=== PATIENT | female | born 2000 | race Caucasian/White ===

== ENCOUNTER 2021-08-15 11:01 | Emergency (ER) | payer OTHER, SELFPAY ==
[2021-08-15 11:10] VITALS: BP 117/80; PULSE 92; RESP 20; TEMP 36.9; O2SAT 100
--- NOTE | 2021-08-15 11:57 | ED.FEMALEGU ---
HPI - Female Genitourinary General Chief complaint: Urogenital-Female Stated complaint: STD Exposure Time Seen by Provider: 08/15/21 11:50 Source: patient, RN notes reviewed and old records reviewed Mode of arrival: ambulatory Limitations: no limitations History of Present Illness HPI Narrative: 20-year-old female who presents to [facility] with complaints of possible STD exposure. Patient states that she received a call from her boyfriend who is working out of state stating that he had chlamydia and she states that she is freaking out. Patient reports that she has not had sexual relations with him since April, she has no discharge or any urinary symptoms. Patient reports that she has not had any fevers, chills or sweats.Patient states that she only want treatment for Chlamydia if testing shows other concerns will return for other treatment. Related Data Home Medications Medication Instructions Recorded Confirmed buspirone 15 mg PO BID 08/15/21 08/15/21 etonogestrel [Nexplanon] 1 implant SUBDERMAL ONCE 08/15/21 08/15/21 Allergies Allergy/AdvReac Type Severity Reaction Status Date / Time No Known Allergies Allergy Verified 08/15/21 11:25 Review of Systems Review of Systems: CONSTITUTIONAL: Denies fever, chills, or sweats. EYES: Denies visual changes, redness, or discharge. ENT: Denies rhinorrhea, congestion, sore throat, or otalgia. CARDIOVASCULAR: Denies chest pain, palpitations, or edema. RESPIRATORY: Denies cough or dyspnea. GASTROINTESTINAL: Denies abdominal pain, nausea, vomiting, or diarrhea. GENITOURINARY: Denies dysuria or hematuria. SKIN: Denies rash or itching. MUSCULOSKELETAL: Denies back pain, joint pain, or myalgia. NEUROLOGIC: Denies headache, numbness, or weakness. PSYCHIATRIC: Denies anxiety or depression. All systems reviewed & are unremarkable except as noted in HPI and below PMFSH Past Medical History Medical History (Updated 08/16/21 @ 11:07 by Danii Daily NP) Anxiety Skin lesion of chest wall removed Social History Social History (Updated 08/16/21 @ 11:08 by Danii Daily NP) Smoking status: Current every day smoker Tobacco type: cigarettes and e-cigarettes/vaping Substance use type: marijuana Gender identity (if verbalized by the patient): Female Comments At time of signature, agree with nursing past medical, surgical, social and family history. There is no relevant family history pertinent to the presenting complaint Exam Narrative: GENERAL: Well-appearing, well-nourished, and in no acute distress. HEAD: Normocephalic, atraumatic. EYES: PERRLA and EOMI. ENT: Nares clear, no rhinorrhea or epistaxis. Mucous membranes moist.TM's normal with good light reflex throat pink with no exudates or lesions no tonsil swelling NECK: Supple.no lymphadenopathy CHEST: Clear to auscultation. No respiratory distress.SAO2 100% on room air HEART: Regular rate and rhythm. No murmur heard. Normal peripheral pulses. ABDOMEN: Soft, nontender, nondistended, normal active bowel sounds.No abdominal pain, denies any vaginal discharge or itching EXTREMITIES: Normal range of motion. No edema. SKIN: Warm, dry, no rash. NEURO: No focal deficits. Alert and oriented x3. Course Course Level of Care: Express Care Visit Vital Signs Vital signs: Vital Signs Temperature 36.9 C 08/15/21 11:10 Pulse Rate 92 08/15/21 11:10 Respiratory Rate 20 08/15/21 11:10 Blood Pressure 117/80 08/15/21 11:10 Pulse Oximetry 100 08/15/21 11:10 Temperature 36.9 C 08/15/21 11:10 Pulse Rate 92 08/15/21 11:10 Respiratory Rate 20 08/15/21 11:10 Blood Pressure 117/80 08/15/21 11:10 Pulse Oximetry 100 08/15/21 11:10 MDM - Female Genitourinary Differential Diagnosis Differential diagnosis: Likely bacterial vaginosis, trichomoniasis, vaginitis, cystitis and other (Possible exposure to STD) Medical Records Attestation: I reviewed the patient's medical records. Lab Data Attestati
== END 2021-08-15 12:18 | disposition home or self-care (01) ==
PROVIDERS: Emergency Provider Registered Nurse; PCP Physician Assistant
DX: Z20.2 Contact with and (suspected) exposure to infections with a predominantly sexual mode of transmission (principal); F17.210 Nicotine dependence, cigarettes, uncomplicated
CPT/HCPCS: 81003; 87491; 87591; 87661; 99213; G0463

== ENCOUNTER 2021-10-15 16:11 | Emergency (ER) | payer OTHER, SELFPAY ==
[2021-10-15 16:20] VITALS: BP 113/68; PULSE 112; RESP 16; TEMP 37.2; O2SAT 99
--- NOTE | 2021-10-15 16:24 | ED.URI ---
HPI - URI/Sore Throat General Chief Complaint: Upper Respiratory Infection Stated Complaint: Sore Throat/Fever Time Seen by Provider: 10/15/21 16:16 Source: patient and RN notes reviewed History of Present Illness HPI Narrative: Patient is a 21-year-old female who presents the urgent care with complaints of sore throat and fever since Wednesday. Patient states her fevers got as high as 102 Fahrenheit. Patient states that she took a COVID test last night at home which was negative. Denies of any ill exposures. States that she has been using cough and cold medication. Denies any nausea or vomiting. No other acute complaints. No acute distress noted. Patient aware of the plan of care. Some parts of this dictation were generated by voice recognition software and may contain typographical and/or grammatical inaccuracies. Related Data Home Medications Medication Instructions Recorded Confirmed buspirone 15 mg tablet 15 mg PO BID 08/15/21 08/15/21 etonogestrel 68 mg subdermal 1 implant subdermal ONCE 08/15/21 08/15/21 implant (Nexplanon) Allergies Allergy/AdvReac Type Severity Reaction Status Date / Time No Known Allergies Allergy Verified 10/15/21 16:26 Review of Systems Review of Systems: CONSTITUTIONAL: Reports a fever EYES: Denies visual changes, redness, or discharge. ENT: Reports of sore throat bilateral otalgia CARDIOVASCULAR: Denies chest pain, palpitations, or edema. RESPIRATORY: Denies cough or dyspnea. GASTROINTESTINAL: Denies abdominal pain, nausea, vomiting, or diarrhea. GENITOURINARY: Denies dysuria or hematuria. SKIN: Denies rash or itching. MUSCULOSKELETAL: Denies back pain, joint pain. Reports body aches NEUROLOGIC: Denies headache, numbness, or weakness. All other systems reviewed are negative, except as documented in HPI. [facility] Past Medical History Medical History (Updated 10/15/21 @ 16:36 by WILLIAM Garcia) Anxiety Skin lesion of chest wall removed Social History Social History (Updated 08/16/21 @ 11:08 by Danii Daily NP) Smoking status: Current every day smoker Tobacco type: cigarettes and e-cigarettes/vaping Substance use type: marijuana Gender identity (if verbalized by the patient): Female Comments At the time of my signature, I reviewed and agree with the nursing past medical, surgical, social, and family history. There is no relevant family history pertinent to the patient complaint. Exam Narrative: GENERAL: This is a well-nourished, well-developed patient, in no apparent distress. HEAD: normocephalic, atraumatic. EYES: PERRL. Sclera clear/white. Vision is grossly intact. EARS: External ears normal, auditory canals clear and without drainage, TMs normal without perforation. Hearing grossly intact. NOSE: External nose normal with no obvious nasal discharge, nares without redness, no rhinorrhea. THROAT: Mucous membranes moist. Moderate erythema noted posterior pharynx with mild postnasal drainage NECK: Neck supple CARDIOVASCULAR: Regular rate and rhythm without murmurs, gallops, or rubs. RESPIRATORY: Clear to auscultation. Breath sounds equal bilaterally. No wheezes, rales, or rhonchi. SKIN: warm, intact with no suspicious lesions or rash, good texture and turgor. NEURO: awake, alert, and oriented to person, place and time. There were no obvious focal neurologic abnormalities. EXTREMITIES: No clubbing, cyanosis, or edema. Course Course Level of Care: Express Care Visit Vital Signs Vital signs: Vital Signs Temperature 99.0 F 10/15/21 16:20 Pulse Rate 112 H 10/15/21 16:20 Respiratory Rate 16 10/15/21 16:20 Blood Pressure 113/68 10/15/21 16:20 Pulse Oximetry 99 10/15/21 16:20 Oxygen Delivery Room Air 10/15/21 16:20 Temperature 99.0 F 10/15/21 16:20 Pulse Rate 112 H 10/15/21 16:20 Respiratory Rate 16 10/15/21 16:20 Blood Pressure 113/68 10/15/21 16:20 Pulse Oximetry 99 10/15/21 16:20 Oxygen Delivery Room Air
--- NOTE | 2021-10-15 16:26 | ED_ITS ---
HPI - URI/Sore Throat General Chief Complaint: Upper Respiratory Infection Stated Complaint: Sore Throat/Fever Time Seen by Provider: 10/15/21 16:16 Source: patient and RN notes reviewed Related Data Home Medications Medication Instructions Recorded Confirmed buspirone 15 mg tablet 15 mg PO BID 08/15/21 08/15/21 etonogestrel 68 mg subdermal 1 implant subdermal ONCE 08/15/21 08/15/21 implant (Nexplanon) Allergies Allergy/AdvReac Type Severity Reaction Status Date / Time No Known Allergies Allergy Verified 10/15/21 16:26 [facility] Past Medical History Medical History (Updated 08/16/21 @ 11:07 by Danii Daily NP) Anxiety Skin lesion of chest wall removed Social History Social History (Updated 08/16/21 @ 11:08 by Danii Daily NP) Smoking status: Current every day smoker Tobacco type: cigarettes and e-cigarettes/vaping Substance use type: marijuana Gender identity (if verbalized by the patient): Female Discharge Plan Discharge Prescriptions: No Action buspirone 15 mg tablet 15 mg PO BID Nexplanon 68 mg Implant 1 implant SUBDERMAL ONCE Follow-up/Referrals: Braden,CATRACHITO Velasquez [Primary Care Provider] -
== END 2021-10-15 16:40 | disposition home or self-care (01) ==
PROVIDERS: Emergency Provider Nurse Practitioner Family; PCP Physician Assistant
DX: B34.9 Viral infection, unspecified (principal); F17.210 Nicotine dependence, cigarettes, uncomplicated; F17.290 Nicotine dependence, other tobacco product, uncomplicated; F41.9 Anxiety disorder, unspecified
CPT/HCPCS: 87081; 87804; 87880; 99213; G0463

== ENCOUNTER 2022-10-14 10:10 | Emergency (ER) | payer OTHER, SELFPAY ==
[2022-10-14 10:18] VITALS: BP 120/66; PULSE 93; RESP 16; TEMP 36.6; O2SAT 100
--- NOTE | 2022-10-14 10:27 | ED.GENADULT ---
HPI - General Adult General Stated complaint: nausea / test Time Seen by Provider: 10/14/22 10:27 Source: patient Mode of arrival: ambulatory Limitations: no limitations History of Present Illness HPI narrative: 22-year-old female presents today requesting test for work. States she left work today due to nausea. States that her work needs prove that she is . Has had several positive home test. No other complaints today. Patient has a OBGYN appointment scheduled for November 02. All systems reviewed and negative except as noted above. Related Data Home Medications Medication Instructions Recorded Confirmed No Home Medications 10/14/22 10/14/22 Allergies Allergy/AdvReac Type Severity Reaction Status Date / Time No Known Allergies Allergy Verified 10/14/22 10:21 Review of Systems Review of Systems: CONSTITUTIONAL: Denies fever, chills, or sweats. EYES: Denies visual changes, redness, or discharge. ENT: Denies rhinorrhea, congestion, sore throat, or otalgia. CARDIOVASCULAR: Denies chest pain, palpitations, or edema. RESPIRATORY: Denies cough or dyspnea. GASTROINTESTINAL: Denies abdominal pain, nausea, vomiting, or diarrhea. GENITOURINARY: Denies dysuria or hematuria. SKIN: Denies rash or itching. MUSCULOSKELETAL: Denies back pain, joint pain, or myalgia. NEUROLOGIC: Denies headache, numbness, or weakness. PSYCHIATRIC: Denies anxiety or depression. All other systems reviewed are negative, except as documented in HPI. [facility] Past Medical History Medical History (Updated 10/14/22 @ 10:33 by Jacqueline Hummel NP) Anxiety Skin lesion of chest wall removed Social History Social History (Updated 08/16/21 @ 11:08 by Danii Daily NP) Smoking status: Current every day smoker Tobacco type: cigarettes and e-cigarettes/vaping Substance use type: marijuana Gender identity (if verbalized by the patient): Female Comments At time of signature, agree with nursing past medical, surgical, social and family history. There is no relevant family history pertinent to the presenting complaint. Exam Narrative: GENERAL: This is a well-nourished, well-developed patient, in no apparent distress. HEAD: normocephalic, atraumatic. EYES: PERRL. Sclera clear/white. Vision is grossly intact. EARS: External ears normal NOSE: External nose normal NECK: Neck supple, non-tender without lymphadenopathy, masses or thyromegaly. CARDIOVASCULAR: Regular rate and rhythm without murmurs, gallops, or rubs. RESPIRATORY: Clear to auscultation. Breath sounds equal bilaterally. No wheezes, rales, or rhonchi. SKIN: warm, Dry, intact with no suspicious lesions or rash, good texture and turgor. NEURO: awake, alert, and oriented to person, place and time. There were no obvious focal neurologic abnormalities. EXTREMITIES: No joint tenderness, effusion, or edema noted. Course Course Level of Care: Express Care Visit Vital Signs Vital signs: Vital Signs Temperature 36.6 C 10/14/22 10:18 Pulse Rate 93 10/14/22 10:18 Respiratory Rate 16 10/14/22 10:18 Blood Pressure 120/66 10/14/22 10:18 Pulse Oximetry 100 10/14/22 10:18 Oxygen Delivery Room Air 10/14/22 10:18 Temperature 36.6 C 10/14/22 10:18 Pulse Rate 93 10/14/22 10:18 Respiratory Rate 16 10/14/22 10:18 Blood Pressure 120/66 10/14/22 10:18 Pulse Oximetry 100 10/14/22 10:18 Oxygen Delivery Room Air 10/14/22 10:18 Reviewed Medical Decision Making MDM Narrative Medical decision making narrative: Patient is aware of diagnosis, understands and agrees to treatment plan. Anticipatory guidance given. Patient agrees to follow-up as directed and is aware of reasons to seek care at the emergency department. Portions of this record may have been created with voice recognition software Vital Signs Vital Signs: Vital Signs Temperature 36.6 C 10/14/22 10:18 Pulse Rate 93 0
[2022-10-14 10:28] VITALS: BP 120/66; PULSE 93; RESP 16; TEMP 36.6; O2SAT 100
== END 2022-10-14 10:35 | disposition home or self-care (01) ==
PROVIDERS: Emergency Provider Nurse Practitioner Family; PCP Physician Assistant
DX: Z32.01 Encounter for pregnancy test, result positive (principal); F17.210 Nicotine dependence, cigarettes, uncomplicated; F17.290 Nicotine dependence, other tobacco product, uncomplicated; F12.90 Cannabis use, unspecified, uncomplicated
CPT/HCPCS: 99211; G0463

== ENCOUNTER 2022-10-26 14:03 | Emergency (ER) | payer OTHER, SELFPAY ==
[2022-10-26 14:08] VITALS: BP 114/58; PULSE 72; RESP 20; TEMP 37.3; O2SAT 100
[2022-10-26 14:16] VITALS: BP 114/58; PULSE 72; RESP 20; TEMP 37.3; O2SAT 100
--- NOTE | 2022-10-26 14:18 | ED.NAVMDI ---
HPI - Nausea/Vomiting/Diarrhea General Chief complaint: Nausea/Vomiting/Diarrhea Stated complaint: Vomiting History of Present Illness HPI Narrative: Patient presents with nausea. Patient is 10 weeks and in her 1st trimester and states she has nausea. Patient is able to tolerate saltine crackers and keep liquids down. No abdominal pain, no vaginal discharge, no urinary symptoms, no back pain no related ear problems. Other than the nausea. 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 Related Data Allergies Allergy/AdvReac Type Severity Reaction Status Date / Time No Known Allergies Allergy Verified 10/26/22 14:10 Review of Systems Review of Systems: CONSTITUTIONAL: Denies fever, chills, or sweats. EYES: Denies visual changes, redness, or discharge. ENT: Denies rhinorrhea, congestion, sore throat, or otalgia. CARDIOVASCULAR: Denies chest pain, palpitations, or edema. RESPIRATORY: Denies cough or dyspnea. GASTROINTESTINAL: Denies abdominal pain, nausea, vomiting, or diarrhea. GENITOURINARY: Denies dysuria or hematuria. SKIN: Denies rash or itching. MUSCULOSKELETAL: Denies back pain, joint pain, or myalgia. NEUROLOGIC: Denies headache, numbness, or weakness. PSYCHIATRIC: Denies anxiety or depression. [facility] Past Medical History Medical History (Updated 10/26/22 @ 14:27 by WILLIAM Lamar) Anxiety Skin lesion of chest wall removed Social History Social History (Updated 08/16/21 @ 11:08 by Danii Daily NP) Smoking status: Current every day smoker Tobacco type: cigarettes and e-cigarettes/vaping Substance use type: marijuana Gender identity (if verbalized by the patient): Female Comments At time of signature, agree with nursing past medical, surgical, social and family history. There is no relevant family history pertinent to the presenting complaint Exam Narrative: GENERAL: Well-appearing, well-nourished, and in no acute distress. HEAD: Normocephalic, atraumatic. EYES: PERRLA and EOMI. ENT: Nares clear, no rhinorrhea or epistaxis. Mucous membranes moist. NECK: Supple. CHEST: Clear to auscultation. No respiratory distress. HEART: Regular rate and rhythm. No murmur heard. Normal peripheral pulses. ABDOMEN: Soft, nontender, nondistended, normal active bowel sounds. EXTREMITIES: Normal range of motion. No edema. SKIN: Warm, dry, no rash. NEURO: No focal deficits. Alert and oriented x3. Maryuri Coma Scale Eye Opening: Spontaneous 4 Maryuri Coma Scale Motor: Obeys Commands 6 Maryuri Coma Scale Verbal: Oriented 5 [place] Coma Scale Total 15 Course Course Level of Care: Express Care Visit Vital Signs Vital signs: Vital Signs Temperature 37.3 C 10/26/22 14:08 Pulse Rate 72 10/26/22 14:08 Respiratory Rate 20 10/26/22 14:08 Blood Pressure 114/58 L 10/26/22 14:08 Pulse Oximetry 100 10/26/22 14:08 Oxygen Delivery Room Air 10/26/22 14:08 Temperature 37.3 C 10/26/22 14:16 Pulse Rate 72 10/26/22 14:16 Respiratory Rate 20 10/26/22 14:16 Blood Pressure 114/58 L 10/26/22 14:16 Pulse Oximetry 100 10/26/22 14:16 Oxygen Delivery Room Air 10/26/22 14:16 MDM - Nausea/Vomiting/Diarrhea Differential Diagnosis Differential diagnosis: Likely traveler's diarrhea, food poisoning, gastroenteritis, clostridium difficile infection, drug-induced nausea and vomiting and dehydration Discharge Plan Discharge Clinical Impression: First trimester , Nausea and vomiting during Patient Disposition: Home, Self-Care Condition: Stable Instructions: Nausea and Vomiting in (ED), at 7 to 10 Weeks (ED) Additional Instructions: push fluids, soups, saltine crackers follow up with OB as planned medication as prescribed if any new or worsening of symptoms go to er immediately Prescriptions: New doxylamine-pyridoxine (vit B6) [Diclegi
== END 2022-10-26 14:26 | disposition home or self-care (01) ==
PROVIDERS: Emergency Provider Nurse Practitioner Family; PCP Physician Assistant
DX: O21.9 Vomiting of pregnancy, unspecified (principal); Z3A.10 10 weeks gestation of pregnancy
CPT/HCPCS: 99213; G0463

== ENCOUNTER 2023-08-20 19:30 | Emergency (ER) | payer OTHER, SELFPAY ==
[2023-08-20 19:36] VITALS: BP 122/70; PULSE 64; RESP 16; TEMP 37.7; O2SAT 98
--- NOTE | 2023-08-20 19:56 | ED.DENTAL ---
HPI - Dental/Oral General Chief complaint: Dental/Oral Stated complaint: tooth infection Time Seen by Provider: 08/20/23 19:50 Source: patient Mode of arrival: ambulatory History of Present Illness HPI Narrative: 22-year-old female presenting for complaint of right lower dental pain for about 1 week. Endorses broken wisdom tooth at the site. Scheduled with dentist in 5 days. Patient is currently . MD Complaint: tooth pain Related Data Home Medications Medication Instructions Recorded Confirmed norethindrone (contraceptive) 0.35 mg 08/20/23 mg tablet Allergies Allergy/AdvReac Type Severity Reaction Status Date / Time No Known Allergies Allergy Verified 10/26/22 14:10 Review of Systems Review of Systems: CONSTITUTIONAL: Denies body aches, fever, chills ENT: Denies rhinorrhea, congestion, sore throat, or otalgia. Reports dental pain CARDIOVASCULAR: Denies chest pain, palpitations RESPIRATORY: Denies cough or dyspnea. SKIN: Denies rash, itching, or wounds. MUSCULOSKELETAL: Denies myalgia. NEUROLOGIC: Denies headache, numbness, tingling, or weakness. [facility] Past Medical History Medical History Anxiety Skin lesion of chest wall removed Social History Social History Smoking status: Current every day smoker Tobacco type: cigarettes and e-cigarettes/vaping Substance use type: marijuana Gender identity (if verbalized by the patient): Female Comments At time of signature, I have reviewed and agree with nursing past medical, surgical, social and family history unless otherwise noted. Please see nursing chart for further information. There is no relevant family history pertinent to the presenting complaint Exam Narrative: GENERAL: Appears in pain; no acute distress. HEAD: Normocephalic, atraumatic. EYES: EOMI. No redness or drainage. Conjunctivae normal. ENT: Dental pain location of #32, Tooth is broken, lateral gumline with periapical abscess noted, no active drainage. no dysphagia, odynophagia, dysphonia, or dyspnea. No uvular deviation or soft palate edema. Mucous membranes pink and moist. TMs normal bilaterally. Throat normal. Uvula midline. NECK: Normal AROM. No lymphadenopathy. no induration below mandible, no neck pain. CHEST: No respiratory distress. Clear to auscultation. SKIN: Warm, dry, no rash. Normal skin turgor. NEURO: No focal deficits. Course Course Emergency Course: Patient is aware of diagnosis, understands and agrees to treatment plan. Anticipatory guidance given. Patient agrees to follow-up as directed and is aware of reasons to seek care at the emergency department. Portions of this record may have been created with voice recognition software Level of Care: Express Care Visit Vital Signs Vital signs: Vital Signs Temperature 99.8 F H 08/20/23 19:36 Pulse Rate 64 08/20/23 19:36 Respiratory Rate 16 08/20/23 19:36 Blood Pressure 122/70 08/20/23 19:36 Pulse Oximetry 98 08/20/23 19:36 Oxygen Delivery Room Air 08/20/23 19:36 Temperature 99.8 F H 08/20/23 19:36 Pulse Rate 64 08/20/23 19:36 Respiratory Rate 16 08/20/23 19:36 Blood Pressure 122/70 08/20/23 19:36 Pulse Oximetry 98 08/20/23 19:36 Oxygen Delivery Room Air 08/20/23 19:36 MDM - Dental/Oral MDM Narrative Medical decision making narrative: Patients pain and complaint coupled with physical findings are consistent with dental abscess. There are no focal signs of space occupying lesions that are compromising to the airway; Patient is non-toxic appearing. The floor of the mouth is soft with no signs of Baltazar's Angina; Patient is without trismus or drooling and able to swallow secretions. Patient is felt appropriate for discharge home with dental follow up as scheduled 08/25/23. Differential Diagnosis Differential diagnosis
== END 2023-08-20 20:01 | disposition home or self-care (01) ==
PROVIDERS: Emergency Provider Nurse Practitioner Family; PCP Physician Assistant
DX: K04.7 Periapical abscess without sinus (principal); F17.210 Nicotine dependence, cigarettes, uncomplicated; F17.290 Nicotine dependence, other tobacco product, uncomplicated; F12.90 Cannabis use, unspecified, uncomplicated
CPT/HCPCS: 99213; G0463

== ENCOUNTER 2023-10-08 16:35 | Emergency (ER) | payer OTHER, SELFPAY ==
[2023-10-08 16:41] VITALS: BP 119/71; PULSE 88; RESP 16; TEMP 37.1; O2SAT 100
--- NOTE | 2023-10-08 17:03 | ED.FEMALEGU ---
HPI - Female Genitourinary General Chief complaint: Urogenital-Female Stated complaint: Trichomoniasis Time Seen by Provider: 10/08/23 16:55 Source: patient, RN notes reviewed and old records reviewed Mode of arrival: ambulatory Limitations: no limitations History of Present Illness HPI Narrative: 23 year old [facility] with stated complaint of fiance testing positive for Trichomonas and she is her to be tested. Patient reports that she has no change in vaginal discharge is same as since after bleeding stopped after giving 4 months ago. Patient reports that she has no vaginal itching or any abdominal cramping or pain. Patient did reports that she tested positive for herpes while she was but did not have any outbreak. Patient has 4 month old and is breast feeding. MD elicited complaint: UTI , possible STD and other Pertinent past history: other (UTI while , fiance positive for trichomoniasis) Onset (ago): day(s) (few) Severity: mild Vaginal discharge: other (no change in discharge) Vaginal bleeding: none Sexual activity: Yes Related Data Home Medications Medication Instructions Recorded Confirmed norethindrone (contraceptive) 0.35 mg 08/20/23 mg tablet Allergies Allergy/AdvReac Type Severity Reaction Status Date / Time No Known Allergies Allergy Verified 10/26/22 14:10 Review of Systems Review of Systems: CONSTITUTIONAL: Denies fever, chills, or sweats. CARDIOVASCULAR: Denies chest pain, palpitations, or edema. RESPIRATORY: Denies cough or dyspnea. GASTROINTESTINAL: Denies abdominal pain, nausea, vomiting, or diarrhea. GENITOURINARY: Reports no dysuria,some frequency, urgency. Denies flank pain or hematuria, states did have UTI's during her baby is now 4 months old. SKIN: Denies rash or itching. MUSCULOSKELETAL: Denies back pain or myalgia. Denies CVA tenderness NEUROLOGIC: Denies headache All systems reviewed & are unremarkable except as noted in HPI and below PMFSH Past Medical History Medical History Anxiety Skin lesion of chest wall removed Social History Social History Smoking status: Current every day smoker Tobacco type: cigarettes and e-cigarettes/vaping Substance use type: marijuana Gender identity (if verbalized by the patient): Female Comments At time of signature, agree with nursing past medical, surgical, social and family history. There is no relevant family history pertinent to the presenting complaint Exam Narrative: GENERAL: Well-appearing, well-nourished, and in no acute distress. HEAD: Normocephalic, atraumatic. NECK: Supple.no lymphadenopathy CHEST: Clear to auscultation. No respiratory distress.SAO2 100% on room air HEART: Regular rate and rhythm. No murmur heard. Normal peripheral pulses. ABDOMEN: Soft, nontender, nondistended, normal active bowel sounds. No CVA tenderness, reports urinary frequency and history of UTI's while want urine checked for UTI along with STD's, denies any vaginal lesions or itching EXTREMITIES: Normal range of motion. No edema. SKIN: Warm, dry, no rash. NEURO: No focal deficits. Alert and oriented x3. Course Course Emergency Course: Patient is aware of diagnosis, understands and agrees to treatment plan.? Anticipatory guidance given.? Patient agrees to follow-up as directed and is aware of reasons to seek care at the emergency department. Portions of this record may have been created with voice recognition software Level of Care: Express Care Visit Vital Signs Vital signs: Vital Signs Temperature 37.1 C 10/08/23 16:41 Pulse Rate 88 10/08/23 16:41 Respiratory Rate 16 10/08/23 16:41 Blood Pressure 119/71 10/08/23 16:41 Pulse Oximetry 100 10/08/23 16:41 Oxygen Delivery Room Air 10/08/23 16:41 Temperature 37.1 C 10/08/23 16:41 P
[2023-10-08 19:48] LABS: Trichomonas Vag PCR DETECTED (NOT DETECTE)
[2023-10-08 20:23] LABS: Chlamydia trachomatis NOT DETECTED (NOT DETECTE); Neisseria gonorrhoeae PCR NOT DETECTED (NOT DETECTE)
== END 2023-10-08 17:26 | disposition home or self-care (01) ==
PROVIDERS: Emergency Provider Registered Nurse; PCP Physician Assistant
DX: Z11.3 Encounter for screening for infections with a predominantly sexual mode of transmission (principal); N39.0 Urinary tract infection, site not specified; F17.210 Nicotine dependence, cigarettes, uncomplicated; F17.290 Nicotine dependence, other tobacco product, uncomplicated
CPT/HCPCS: 81003; 87086; 87088; 87491; 87591; 87661; 99214; G0463

== ENCOUNTER 2024-03-14 08:30 | Emergency (ER) | payer OTHER, SELFPAY ==
[2024-03-14 08:34] VITALS: BP 112/75; PULSE 68; RESP 20; TEMP 36.6; O2SAT 100
--- NOTE | 2024-03-14 08:43 | ED_ITS ---
HPI - Dental/Oral General Chief complaint: Dental/Oral Stated complaint: Tooth Pain Time Seen by Provider: 03/14/24 08:43 Source: patient, RN notes reviewed and old records reviewed Mode of arrival: ambulatory Limitations: no limitations History of Present Illness HPI Narrative: 23-year-old female to [facility] with complaint of right upper and right lower molar dental pain 3 days. Patient reports history dental caries, fractures, states she does not have a dentist. Patient states that she is currently breast feeding. States her last dental infection was approximately 3 months ago, and treated amoxicillin. Patient denies fever, headache, nausea, drainage , allergies. Patient has attempted to treat at home with Tylenol with little relief. Resting comfortably in exam room in no acute distress. Resp irations even and nonlabored. Related Data Home Medications Medication Instructions Recorded Confirmed norethindrone (contraceptive) 0.35 mg 08/20/23 mg tablet Allergies Allergy/AdvReac Type Severity Reaction Status Date / Time No Known Allergies Allergy Verified 10/26/22 14:10 Review of Systems Review of Systems: All systems reviewed & are unremarkable except as noted in HPI and below Constitutional: Constitutional: Reports no additional constitutional complaints Eyes: Eyes: Reports no additional eye complaints ENT: Reports as per HPI and Reports dental pain Cardiovascular: Cardiovascular: Reports no additional cardiovascular complaints, Denies chest pain and Denies dyspnea Respiratory: Respiratory: Reports no additional respiratory complaints, Denies cough and Denies dyspnea Musculoskeletal: Musculoskeletal: Reports no additional musculoskeletal complaints Neurologic: Reports system reviewed and no additional complaints, except as documented Psychiatric: Psychiatric: Reports no additional psychiatric complaints PMFSH Past Medical History Medical History Anxiety Skin lesion of chest wall removed Social History Social History Smoking status: Current every day smoker Tobacco type: cigarettes and e-cigarettes/vaping Substance use type: marijuana Gender identity (if verbalized by the patient): Female Comments At the time of my signature, I reviewed and agree with the nursing past medical, surgical, social, and family history. There is no relevant family history pertinent to the patient complaint. Exam Const: General: cooperative, comfortable, no acute distress, alert and well nourished Nutritional Appearance: well nourished Orientation/consciousness: patient oriented x3 Limitations: no limitations HENMT: Head: normal to inspection Ears: external ears normal Face/Nose/Sinus: Normal external nose present, Normal nares present, normal facial exam, No erythema and No edema Face and sinus: normal facial exam, no erythema and no edema Mouth: Yes Normal oral and palatal mucosa present T eeth and gingiva: abnormal tooth and associated gingiva ( His right upper and right lower 3rd molar with extensive caries, fx) right , caries and gingiva abnormal hypertrophic, diffusely erythematous and tender; without any purulent discharge Eyes: General: appearance normal, both eyes and all related structures Neck: Neck: normal visual inspection, full ROM and no meningeal signs Lymphatic: no lymphadenopathy noted and no lymphedema noted Chest: Chest palpation & inspection: normal inspection of the chest Resp: Effort & Inspection: normal respiratory effort and able to speak in complete sentences Cardio: Jugular venous distension: no JVD Rate: regular rate Back/Spine/Pelvis: Cervical Spine: cervical ROM normal Skin: General skin exam: normal color, no rashes or lesions noted and turgor normal Neuro: General: patient oriented x3, gait normal, moves all extremities and no meningeal signs Speech: normal speech Gait exam (Neuro): Normal gait present Extrem: General: normal to inspection, full ROM and capillary refill normal Psych: Appearance: grossly normal and well kempt Course Course Emergency Course: Some parts of this dictation were generated by voice recognition software and may contain typographical and/or grammatical inaccuracies. Level of Care: Express Care Visit Vital Signs Vital signs: Vital Signs Temperature 36.6 C 03/14/24 08:34 Pulse Rate 68 03/14/24 08:34 Respiratory Rate 20 03/14/24 08:34 Blood Pressure 112/75 03/14/24 08:34 Pulse Oximetry 100 03/14/24 08:34 Oxygen Delivery Room Air 03/14/24 08:34 Temperature 36.6 C 03/14/24 08:34 Pulse Rate 68 03/14/24 08:34 Respiratory Rate 20 03/14/24 08:34 Blood Pressure 112/75 03/14/24 08:34 Pulse Oximetry 100 03/14/24 08:34 Oxygen Delivery Room Air 03/14/24 08:34 reviewed MDM - Dental/Oral MDM Narrative Medical decision making narrative: 23-year-old female to [facility] Care with complaint of right upper and right lower molar dental pain 3 days. Patient reports history dental caries, fractures, states she does not have a dentist. Patient states that she is currently breast feeding. States her last dental infection was approximately 3 months ago, and treated amoxicillin. Patient denies fever, headache, nausea, drainage , allergies. Patient has attempted to treat at home with Tylenol with little relief. Resting comfortably in exam room in no acute distress. Respirations even and nonlabored. on exam, poor dentition. Multiple caries and partial fractures present throughout. diffuse gingival erythema and edema. Gingival tenderness present to right upper and right lower molar areas. Patient is sitting comfortably in exam room nontoxic in appearance. Patient appropriate for outpatient treatment and follow-up. Discharge instructions reviewed with patient, as well as provided in writing per nursing staff. The instructions also include specific and strict return/GO TO THE ER as well as f/u information. All questions have been answered, and the patient deny any further questions with discharge and discharge plan. Some parts of this dictation were generated by voice recognition software and may contain typographical and/or grammatical inaccuracies. Differential Diagnosis Differential diagnosis: Likely gingival abscess, dental caries, toothache, dental abscess, fracture of tooth and aphthous ulcer Discharge Plan Discharge Clinical Impression: Dental abscess Patient Disposition: Home, Self-Care Condition: Stable Instructions: Dental Abscess (ED) Additional Instructions: Finish the entire course of antibiotics & use the mouthwash. After every time you eat be sure to use salt water gargles. Apply ice to face to help with pain. Dental problems can lead to other problems, so this is important to follow up with a dental provider. To solve the problem, You need to follow up with a dental provider, a list has been given to you. Please follow up with your dentist as soon as possible. Take Ibuprofen as prescribed for pain and to decrease swelling- take this with food Follow up with a Primary Care Provider (PCP) about medical needs. A PCP can help keep you healthy by preventive medicine and screening. Return to Urgent care or go to the ER for New or worsening symptoms. Prescriptions: New amoxicillin 875 mg tablet 875 mg PO Q12H Qty: 20 0RF No Action doxylamine-pyridoxine (vit B6) [Diclegis] 10-10 mg tablet,delayed release (DR/EC) 1 tablet PO DAILY Qty: 7 0RF norethindrone (contraceptive) 0.35 mg tablet ibuprofen 800 mg tablet 800 mg PO TID PRN (Reason: pain) Qty: 15 0RF lidocaine HCl [Lidocaine Viscous] 2 % solution 1 applic mucous membrane TID PRN (Reason: pain) Qty: 100 0RF Rx Instructions: apply with cotton swab to site of pain amoxicillin-pot clavulanate 875-125 mg tablet 1 tablet PO Q12H 7 Days Qty: 14 0RF nitrofurantoin monohyd/m-cryst [Macrobid] 100 mg capsule 100 mg PO Q12H 7 Days Qty: 14 0RF Rx Instructions: must administer with a meal/food metronidazole 500 mg tablet 500 mg PO Q12H Qty: 14 0RF Follow-up/Referrals: Braden,CATRACHITO Velasquez [Primary Care Provider] -
== END 2024-03-14 09:23 | disposition home or self-care (01) ==
PROVIDERS: Emergency Provider Nurse Practitioner Family; PCP Physician Assistant
DX: K04.7 Periapical abscess without sinus (principal); F17.210 Nicotine dependence, cigarettes, uncomplicated; F17.290 Nicotine dependence, other tobacco product, uncomplicated; F12.90 Cannabis use, unspecified, uncomplicated
CPT/HCPCS: 99213; G0463